=== PATIENT | male | born 1970 | race Caucasian/White ===

== ENCOUNTER 2017-09-06 21:05 | Emergency (ER) | payer SELFPAY ==
[~2017-09-06] VITALS: Ht 165.1 cm; Wt 79.4 kg
[2017-09-06 21:14] VITALS: BP 167/90
--- NOTE | 2017-09-06 22:20 | NUR ---
TO ER ED 4
--- NOTE | 2017-09-06 22:28 | NUR ---
46 Y/O F W/C/O R SIDE PAIN/ R EYELID S/P GETTING HIT BY OBJECT AT WORK. PT DENIES ANY LOC AT THE SCENE. DENIES ANY DIZZINESS, NAUSEA/VOMITING. NO OTHER S/S OF DISTRESS NOTED. ER MD MADE AWARE.
--- NOTE | 2017-09-06 22:30 | NUR ---
IAN RICCI AT BEDSIDE EVALUATING PT.
[2017-09-06 22:45] VITALS: BP 142/78
--- NOTE | 2017-09-06 22:45 | NUR ---
Patient discharged with v/s stable. Written and verbal after care instructions given and explained. Patient alert, oriented and verbalized understanding of instructions. Ambulatory with steady gait. All questions addressed prior to discharge. ID band removed. Patient advised to follow up with PMD OR RETURN TO ER IF CODNITION WORSENS. Rx of SULFACETAMIDE given. Patient educated on indication of medication including possible reaction and side effects. Opportunity to ask questions provided and answered.
== END 2017-09-06 22:45 | disposition home or self-care (01) ==
LOC: MED 21:05
DX: S00.11XA Contusion of right eyelid and periocular area, initial encounter (principal); W22.8XXA Striking against or struck by other objects, initial encounter; Y93.89 Activity, other specified; Y92.89 Other specified places as the place of occurrence of the external cause; Y99.8 Other external cause status
CPT/HCPCS: 99283